=== PATIENT | female | born 1975 | race Caucasian/White ===

== ENCOUNTER → 2018-01-15 | Outpatient (CLI) | payer BC ==
--- NOTE | 2018-01-18 10:42 | USB ---
Reason for exam: follow-up at short interval from prior study. History: Benign US biopsy breast VAD LT of the left breast, April 12, 2014. Physical Findings: Nurse Summary: left breast palpables, movable, tender, 0.5 x 0.5cm at 3 o'clock/6 o'clock (nurse ts). US Breast LT Left breast ultrasound includes all four quadrants, the retroareolar region and axilla. Finding demonstrates a 0.6 x 0.6 x 0.4cm oval, irregular, hypoechoic lesion at 3:30 for which a biopsy is recommended and a 0.2 x 0.3 x 0.2cm oval lesion too small to characterize at 3 o'clock. These results were verbally communicated with the patient and result sheet given to the patient on 01/15/18. ASSESSMENT: Suspicious, BI-RAD 4 RECOMMENDATION: Ultrasound core biopsy of the left breast. Called Dr. Yanelis Mohr with mammographic findings and has scheduled an appointment for the patient for 02/04/18 at 10:[address] Mohr. Biopsy scheduled for 01/22/18 at 11:30. PRELIMINARY REPORT CALLED AND FAXED TO DR. MOHR ON 01/18/18.
== END | disposition home or self-care (01) ==
LOC: RADUSWWP 14:49
PROVIDERS: ATTEND Family Medicine
DX: R92.8 Other abnormal and inconclusive findings on diagnostic imaging of breast (principal)

== ENCOUNTER → 2018-01-22 | Day surgery (SDC) | payer BC ==
[2018-01-22 10:49] VITALS: PULSE 66; RESP 16; BMI 22.8
[2018-01-22 12:34] VITALS: BP 109/68; TEMP 98
--- NOTE | 2018-01-22 12:44 | USB ---
EXAMINATION TYPE: US biopsy breast VAD LT, MG diagnostic mammo LT wo CAD DATE OF EXAM: 01/22/2018 CLINICAL HISTORY: R92.8 Abnormal Mammo. TECHNIQUE: Ultrasound guided core biopsy of left 3:30 breast. COMPARISON: NONE FINDINGS: The procedure of ultrasound guided core biopsy was explained to the patient. Benefits, alternatives, and risks were discussed. An informed consent was then obtained. The patient was placed in supine positioning for imaging and for the procedure. The overlying skin was prepped and draped in usual sterile fashion. Lidocaine buffered with bicarbonate was used as anesthetic into the skin and subcutaneous tissue up to area of concern in the left 3:30 breast. A phani was made with surgical scalpel. Under ultrasound guidance, a 12-gauge vacuum assisted biopsy gun device was used to obtain 4 core samples. Following this, a biopsy clip was left in lesion. Postprocedural mammogram demonstrates appropriate deployment of clip. The patient tolerated the procedure well without any immediate complication. The patient was kept in the radiology department for short stay after the procedure and then discharged home in stable condition. IMPRESSION: Successful, uncomplicated ultrasound guided core biopsy of area of concern in the left 3:30 breast, full pathology results to follow. Pathology Results: Benign CORE BIOPSY, LEFT BREAST: FIBROADENOMA. Recommendation Follow up ultrasound of the left breast in 6 months. TYLER
== END | disposition home or self-care (01) ==
LOC: RADUSWWP 10:25
PROVIDERS: ATTEND Surgery
DX: D24.2 Benign neoplasm of left breast (principal); Z88.6 Allergy status to analgesic agent
CPT/HCPCS: 88305; 19083; A4648; J2001; 77065

== ENCOUNTER → 2018-08-02 | Outpatient (CLI) | payer BC ==
--- NOTE | 2018-08-02 09:37 | MM ---
Reason for exam: follow-up at short interval from prior study. Last mammogram was performed 6 months ago. History: Benign US biopsy breast VAD LT of the left breast, January 22, 2018. Benign US biopsy breast VAD LT of the left breast, April 12, 2014. Physical Findings: Nurse did not find any significant physical abnormalities on exam. MG Diagnostic Mammo w CAD MIRANDA Bilateral CC and MLO view(s) were taken. Prior study comparison: January 22, 2018, left breast MG diagnostic mammo LT wo CAD. July 15, 2017, bilateral MG 3d diag mammo w/cad MIRANDA. The breast tissue is heterogeneously dense. This may lower the sensitivity of mammography. Previous mammotome biopsy in the left breast x 2, 6 month follow up after ribbon clip placement at site of biopsy proven fibroadenoma. There is chronic nodularity in the left upper outer quadrant. These results were verbally communicated with the patient and result sheet given to the patient on 08/02/18. ASSESSMENT: Benign, BI-RAD 2 RECOMMENDATION: Routine screening mammogram of both breasts in 1 year.
== END ==
LOC: RADMAMWWP 08:43
PROVIDERS: ATTEND Surgery
DX: R92.8 Other abnormal and inconclusive findings on diagnostic imaging of breast (principal)
CPT/HCPCS: 77066

== ENCOUNTER → 2020-08-06 | Outpatient (CLI) | payer BC | END | disposition home or self-care (01) | LOC: LABWHC1 12:35 | PROVIDERS: ATTEND Family Medicine | DX: Z20.828 Contact with and (suspected) exposure to other viral communicable diseases (principal) | CPT/HCPCS: 87502 ==

== ENCOUNTER → 2020-08-16 | Outpatient (CLI) | payer BC ==
--- NOTE | 2020-08-16 15:23 | XR ---
EXAMINATION TYPE: XR chest 2V DATE OF EXAM: 08/16/2020 COMPARISON: None HISTORY: 45 year-old female shortness of breath, cough and congestion TECHNIQUE: PA and lateral views FINDINGS: The cardiomediastinal silhouette, aorta, and pulmonary vasculature are within normal limits. Hazy low er lung densities relating to overlying breast tissue. No consolidation or pleural effusion. Mild hyp erinflation. IMPRESSION: Mild hyperinflation may relate to depth of inspiration or underlying emphysema. Clinically correlate. Otherwise, no acute cardiopulmonary process.
== END | disposition home or self-care (01) ==
LOC: LABWHC1 10:29
PROVIDERS: ATTEND Nurse Practitioner Family
DX: R91.8 Other nonspecific abnormal finding of lung field (principal); Z20.828 Contact with and (suspected) exposure to other viral communicable diseases
CPT/HCPCS: 71046; U0003; C9803

== ENCOUNTER → 2021-11-28 | Outpatient (CLI) | payer BC ==
--- NOTE | 2021-12-03 12:46 | MM ---
Reason for exam: screening (asymptomatic). Last mammogram was performed 3 years and 4 months ago. History: Benign US biopsy breast VAD LT of the left breast, January 22, 2018. Benign US biopsy breast VAD LT of the left breast, April 12, 2014. Physical Findings: A clinical breast exam by your physician is recommended on an annual basis and results should be correlated with mammographic findings. MG Screening Mammo w CAD Bilateral CC and MLO view(s) were taken. Prior study comparison: August 02, 2018, bilateral MG diagnostic mammo w CAD MIRANDA. January 22, 2018, left breast MG diagnostic mammo LT wo CAD. July 15, 2017, bilateral MG 3d diag mammo w/cad MIRANDA. April 12, 2014, bilateral MG diagnostic mammo w CAD MIRANDA. The breast tissue is heterogeneously dense. This may lower the sensitivity of mammography. Previous mammotome biopsy in the left breast x 2. There is chronic nodularity in the left upper outer quadrant. There is no discrete abnormality. ASSESSMENT: Benign, BI-RAD 2 RECOMMENDATION: Routine screening mammogram of both breasts in 1 year.
== END | disposition home or self-care (01) ==
LOC: RADMAMWWP 09:52
PROVIDERS: ATTEND Family Medicine
DX: Z12.31 Encounter for screening mammogram for malignant neoplasm of breast (principal)
CPT/HCPCS: 77067